=== PATIENT | female | born 1975 | race Caucasian/White ===

== ENCOUNTER 2016-11-09 00:36 | Emergency (ER) | payer OTHER ==
--- NOTE | 2016-11-09 00:37 | EDPHY ---
H & P HPI/ROS: HPI CHIEF COMPLAINT: Dizziness HISTORY OF PRESENT ILLNESS: This patient very pleasant 41-year-old female she does have significant past medical history for benign positional vertigo. She tells me over the past few years she has had 3 or 4 separate episodes of vertigo more frequently recently over the last month to 2 months. She tells me that she is very use to this. She tells me she normally gets acute onset of vertigo suddenly with going from a lying to seated position or significant head turning. Patient presents to the emergency room by EMS for sudden onset vertigo. She tells me that she was in a seated position on the couch watching a movie she got sudden onset vertigo or room spinning sensation however did not have nausea or vomiting did not have double vision did not have loss of vision did not have a headache denies chest pain or shortness of breath or palpitations. She decided to go upstairs to lay down when she went upstairs the vertigo got worse she laid down in bed she started to have hyperventilation , tingling in her hands, she tells me she started to hyperventilate she felt weakness all over her body she had tingling in both of her hands and had spasms in her legs. She tells me that this is not consistent with her history of vertigo. Due to these symptoms she decided to come to the emergency room. Upon arrival to the emergency room this patient has no complaints she states all her symptoms have resolved she feels fine. Specifically she denies chest pain, shortness breath, dizziness, tingling, weakness. Past Medical History: History of vertigo Past Surgical History: Denies significant surgical history Social History: denies use of drugs alcohol tobacco products Family History: Noncontributory ROS REVIEW OF SYSTEMS: A comprehensive 10 point review of systems is otherwise negative aside from elements mentioned in the history of present illness. Exam Constitutional appears well nontoxic triage nursing summary reviewed, vital signs reviewed, awake/alert. Eyes normal conjunctivae and sclera, EOMI, PERRLA. HENT normal inspection, atraumatic, moist mucus membranes, no epistaxis, neck supple/ no meningismus, no raccoon eyes. Respiratory clear to auscultation bilaterally, normal breath sounds, no respiratory distress, no wheezing. Cardiovascular rate normal, regular rhythm, no murmur, no edema, distal pulses normal. Gastrointestinal soft, non-tender, no rebound, no guarding, normal bowel sounds, no distension, no pulsatile mass. Genitourinary no CVA tenderness. Musculoskeletal no midline vertebral tenderness, full range of motion, no calf swelling, no tenderness of extremities, no meningismus, good pulses, neurovascularly intact. Skin pink, warm, & dry, no rash, skin atraumatic. Neurologic awake, alert and oriented x 3, AAOx3, moves all 4 extremities equally, motor intact, sensory intact, CN II-XII intact, normal cerebellar, normal vision, normal speech. Psychiatric normal mood/affect. Heme/Lymph/Immune no lymphadenopathy. Differential Diagnosis: Includes but is not limited to in a particular order electrolyte abnormality, vertigo, intracranial bleed, CVA, dehydration, infection, anxiety attack, panic attack Medical Decision Making: This patient had an IV established received IV fluid bolus, She will have an EKG, troponin, electrolytes we will CT her head to rule out significant intracranial abnormality specifically bleed or CVA infarct. Will watch her on a rn cardiac rehab and observe her closely if all of her testing comes back normal she does feel fine has no complaints at this time she will ambulate around the emergenc she does this I think she can go home. EKG interpretation by me on record in [employer] system. Impression time of EKG 0056 this is sinus rhythm rate of 72, WA interval noted to be 204 which is first-degree AV block. EKG otherwise shows no acute ischemia specifically no ST elevation, ST depression or T-wave abnormalities or signs of arrhythmia. CT scan of the head without IV contrast. The results of the study are negative for anything acute specifically no bleed or infarct The study was read by Dr. Urena I viewed the images myself on the PACS system. Time of re-evaluation: The patient is resting comfortably here, 0214: Re- examination at this time. She has been up multiple times to the bathroom with a normal gait no dizziness, no nausea vomiting no pain. She feels comfortable with discharge plan. I will allow her to go home with meclizine. She has no headache she has no chest pain she has no palpitations she is ambulating well throughout the emergency room without any dizziness. She has no numbness or tingling or focal weakness she feels comfortable going home. She does understand return to the emergency room she develops worsening dizziness nausea vomiting chest pain or shortness of breath or fever. ED x-ray chest one view: Negative for acute cardiopulmonary disease. Source: Patient - Medical/Surgical History Hx Asthma: No Hx Chronic Respiratory Disease: No Hx Diabetes: No Hx Cardiac Disease: No Hx Renal Disease: No Hx Cirrhosis: No Hx Alcoholism: No Hx HIV/AIDS: No Hx Splenectomy or Spleen Trauma: No Other PMH: none - Social History Smoking Status: Never smoked Constitutional: Initial Vital Signs Temperature (C) 36.8 C 11/09/16 00:38 Heart Rate 76 11/09/16 00:38 Respiratory Rate 18 11/09/16 00:38 Blood Pressure 130/81 H 11/09/16 00:38 O2 Sat (%) 99 11/09/16 00:38 O2 Delivery Mode Room Air Allergies/Adverse Reactions: amoxicillin [Amoxicillin] Allergy (Verified 04/05/14 16:40) Home Medications: Medication Instructions Recorded Meclizine HCl [Meclizine HCl 25 mg 25 mg PO BID #14 tab 04/05/14 (RX,OTC)] Meclizine HCl [Meclizine HCl 25 mg 25 mg PO BID #10 tab 11/09/16 (RX,OTC)] Medical Decision Making - Data Points Laboratory Results: Laboratory Results 11/09/16 00:30 11/09/16 00:30 11/09/16 11/09/16 11/09/16 01:00 00:50 00:30 WBC 8.39 10^3/uL (3.80-9.50) RBC 4.74 10^6/uL (4.18-5.33) Hgb 14.2 g/dL (12.6-16.3) Hct 41.3 % (38.0-47.0) MCV 87.1 fL (81.5-99.8) MCH 30.0 pg (27.9-34.1) MCHC 34.4 g/dL (32.4-36.7) RDW 11.8 % (11.5-15.2) Plt Count 359 10^3/uL (150-400) MPV 9.3 fL (8.7-11.7) Neut % (Auto) 40.8 % (39.3-74.2) Lymph % (Auto) 48.0 H % (15.0-45.0) [place] % (Auto) 9.5 % (4.5-13.0) Eos % (Auto) 1.0 % (0.6-7.6) Baso % (Auto) 0.5 % (0.3-1.7) Nucleat RBC Rel Count 0.0 % (0.0-0.2) Absolute Neuts (auto) 3.42 10^3/uL (1.70-6.50) Absolute Lymphs (auto) 4.03 H 10^3/uL (1.00-3.00) Absolute Monos (auto) 0.80 10^3/uL (0.30-0.80) Absolute Eos (auto) 0.08 10^3/uL (0.03-0.40) Absolute Basos (auto) 0.04 10^3/uL (0.02-0.10) Absolute Nucleated RBC 0.00 10^3/uL (0-0.01) Immature Gran % 0.2 % (0.0-1.1) Immature Gran # 0.02 10^3/uL (0.00-0.10) PT 13.3 SEC (12.0-15.0) INR 1.02 (0.83-1.16) APTT 32.2 SEC (23.0-38.0) Sodium 139 mEq/L (134-144) Potassium 4.5 mEq/L (3.5-5.2) Chloride 100 mEq/L (97-110) Carbon Dioxide 26 mEq/l (22-31) Anion Gap 13 mEq/L (8-16) BUN 10 mg/dL (7-23) Creatinine 0.7 mg/dL (0.6-1.0) Estimated GFR > 60 Glucose 101 H mg/dL (70-100) Calcium 9.9 mg/dL (8.5-10.4) Magnesium 2.0 mg/dL (1.6-2.3) Total Bilirubin 0.4 mg/dL (0.1-1.4) Conjugated Bilirubin 0.3 mg/dL (0.0-0.5) Unconjugated Bilirubin 0.1 mg/dL (0.0-1.1) AST 17 IU/L (14-46) ALT 27 IU/L (9-52) Alkaline Phosphatase 55 IU/L (38-126) Creatine Kinase 55 IU/L (0-156) CK-MB (CK-2) Fraction 0.52 ng/mL (0-3.19) Troponin I < 0.012 ng/mL (0-0.034) NT-Pro-B Natriuret Pep 34 pg/mL (0-125) Total Protein 7.5 g/dL (6.3-8.2) Albumin 4.6 g/dL (3.5-5.0) Lipase 112.0 IU/L (23-300) Beta HCG, Qual NEGATIVE Urine Color PALE YELLOW Urine Appearance CLEAR Urine pH 7.0 (5.0-7.5) Ur Specific [place] 1.001 L (1.002-1.030) Urine Protein NEGATIVE (NEGATIVE) Urine Ketones NEGATIVE (NEGATIVE) Urine Blood NEGATIVE (NEGATIVE) Urine Nitrate NEGATIVE (NEGATIVE) Urine Bilirubin NEGATIVE (NEGATIVE) Urine Urobilinogen NEGATIVE EU (0.2-1.0) Ur Leukocyte Esterase NEGATIVE (NEGATIVE) Ur Culture Indicated? NOT INDICATED (NI) Urine Glucose NEGATIVE (NEGATIVE) Medications Given: Discontinued Medications Sodium Chloride (Ns) 1,000 mls @ 0 mls/hr IV ONCE ONE PRN Reason: As Directed Stop: 11/09/16 00:46 Last Admin: 11/09/16 00:49 Dose: 1,000 mls Departure - Departure Disposition: Home, Routine, Self-Care Clinical Impression: Dizziness Condition: Good Instructions: Vertigo (ED) Additional Instructions: 1. Stay well-hydrated drink lots of fluids. 2. Return to the emergency room if he develops any worsening symptoms questions or concerns. 3. return emergency room if she developed dizziness, chest pain, shortness of breath or you do not feel well. Referrals: Pilar Mckee MD [Primary Care Provider] - As per Instructions Maggie Agudelo MD [Medical Doctor] - As per Instructions Prescriptions: Meclizine HCl [Meclizine HCl 25 mg (RX,OTC)] 25 mg PO BID #10 tab
[2016-11-09] MEDS ORDERED: NS 1,000 ML IV ONE (00:45)
[2016-11-09 00:52] LABS: % IMMATURE GRANULYOCYTES 0.2 % (0.0-1.1); ABSOLUTE IMMATURE GRANULOCYTES 0.02 10^3/uL (0.00-0.10); ADD DIFF? NO; ADD MORPH? NO; ADD SCAN? NO; ATYPICAL LYMPHOCYTE FLAG 20 (0-99); FRAGMENT RBC FLAG 0 (0-99); HEMATOCRIT 41.3 % (38.0-47.0); HEMOGLOBIN 14.2 g/dL (12.6-16.3); LEFT SHIFT FLG 0 (0-99); LIPEMIA HEMOLYSIS FLAG 90 (0-99); MEAN CELL HEMOGLOBIN CONCENTR. 34.4 g/dL (32.4-36.7); MEAN CELL VOLUME 87.1 fL (81.5-99.8); MEAN PLATELET VOLUME 9.3 fL (8.7-11.7); PLATELET CLUMPS FLAG 0 (0-99); PLATELET COUNT 359 10^3/uL (150-400); RED BLOOD CELL COUNT 4.74 10^6/uL (4.18-5.33); RED CELL DISTRIBUTION WIDTH 11.8 % (11.5-15.2)
[2016-11-09 01:00] LABS: COLOR PALE YELLOW; LEUKOCYTE ESTERASE,URINE NEGATIVE (NEGATIVE); NITRITE,URINE NEGATIVE (NEGATIVE)
[2016-11-09 01:02] LABS: ALANINE AMINOTRANSFERASE 27 IU/L (9-52); ALBUMIN 4.6 g/dL (3.5-5.0); ALKALINE PHOSPHATASE 55 IU/L (38-126); ANION GAP 13 mEq/L (8-16); ASPARTATE AMINOTRANSFERASE 17 IU/L (14-46); BILIRUBIN,TOTAL 0.4 mg/dL (0.1-1.4); BILIRUBIN-CONJUGATED 0.3 mg/dL (0.0-0.5); BILIRUBIN-UNCONJUGATED 0.1 mg/dL (0.0-1.1); CALCIUM 9.9 mg/dL (8.5-10.4); CARBON DIOXIDE 26 mEq/l (22-31); CHLORIDE 100 mEq/L (97-110); CREATININE 0.7 mg/dL (0.6-1.0); GLOMERULAR FILTRATION RATE > 60; GLUCOSE 101 mg/dL (70-100); POTASSIUM 4.5 mEq/L (3.5-5.2); SODIUM 139 mEq/L (134-144); TOTAL PROTEIN 7.5 g/dL (6.3-8.2)
--- NOTE | 2016-11-09 01:09 | CPEKG ---
Heart Rate: 72 RR Interval: 833 P-R Interval: 204 QRSD Interval: 84 QT Interval: 388 QTC Interval: 425 P [place]: 60 QRS [place]: 54 T Wave [place]: 42 EKG Severity - NORMAL ECG - EKG Impression: SINUS RHYTHM Electronically Signed By: Roni Paige 09-Nov-2016 07:02:04
[2016-11-09 01:11] LABS: CREATINE KINASE-MB FRACTION 0.52 ng/mL (0-3.19)
[2016-11-09 01:25] LABS: APTT 32.2 SEC (23.0-38.0); INR 1.02 (0.83-1.16); PROTIME(PATIENT) 13.3 SEC (12.0-15.0)
[2016-11-09 01:32] LABS: TROPONIN I < 0.012 ng/mL (0-0.034)
[2016-11-09 01:53] VITALS: RESP 16
[2016-11-09 02:49] VITALS: BP 115/64; PULSE 76; TEMP 97.9; O2SAT 96
--- NOTE | 2016-11-09 08:04 | DX ---
Portable chest History: Chest pain. Comparison: None available. Findings: There is mild peribronchial thickening without focal consolidation. There is no pneumothora x or pleural effusion. The heart and pulmonary vasculature are normal. The bones are normal. Impression: Mild peribronchial thickening suggesting airways disease/bronchitis.
--- NOTE | 2016-11-09 08:49 | CT ---
CT Head (Without Contrast) at 0109 hours Indication: Sudden onset vertigo. Technique: Standard noncontrast head CT protocol utilizing 5 mm thick collimated slices and field of view 23 cm. Dose reduction techniques were utilized. Findings: The brain is normally developed. No intracranial hemorrhage, mass lesion, swelling, or ex traaxial fluid collection. The ventricles are normal caliber and midline. The [place]-white matter has n ormal attenuation. The bones are unremarkable. The paranasal sinuses are clear. Impression: Normal. Comment: Case was discussed with Dr. Moose Lara at time 0119 hours on September 09, 2017.
== END 2016-11-09 02:48 | disposition home or self-care (01) ==
LOC: EDUNIT#
DX: R42 Dizziness and giddiness (principal)